=== PATIENT | male | born 2005 | race African-American/Black ===

== ENCOUNTER 2024-03-27 11:41 | Emergency (ER) | payer OTHER ==
[~2024-03-27] VITALS: Ht 175.3 cm; Wt 34.1 kg
[2024-03-27 15:30] VITALS: BP 148/76; TEMP 98; O2SAT 99
== END 2024-03-27 15:45 | disposition home or self-care (01) ==
LOC: M ED 11:41 → EDBD 11:41 → M ED 15:45
DX: R55 Syncope and collapse (principal); R00.1 Bradycardia, unspecified